=== PATIENT | male | born 1960 | race Caucasian/White ===

== ENCOUNTER 2019-07-25 16:58 | Inpatient (IN) | payer OTHER ==
[~2019-07-25] VITALS: Ht 182.9 cm; Wt 108.7 kg
[2019-07-25 17:31] LABS: BASOPHILS # (AUTO) 0.1 X10'3 (0-0.2); EOSINOPHILS # (AUTO) 0.3 X10'3 (0-0.9); EOSINOPHILS % (AUTO) 3.6 % (0-6); HEMATOCRIT 40.2 % (42.0-52.0); LYMPHOCYTES # (AUTO) 1.9 X10'3 (1.1-4.8); LYMPHOCYTES % (AUTO) 23.2 % (21-51); MEAN CORPUSCULAR HEMOGLOBIN 31.2 PG (27.0-31.0); MEAN CORPUSCULAR HGB CONC 34.8 g/dL (33.0-36.5); MEAN CORPUSCULAR VOLUME 89.7 FL (78-98); MEAN PLATELET VOLUME 9.1 FL (7.4-10.4); MONOCYTES # (AUTO) 0.5 X10'3 (0-0.9); MONOCYTES % (AUTO) 5.8 % (2-12); NEUTROPHILS # (AUTO) 5.5 X10'3 (1.8-7.7); NEUTROPHILS % (AUTO) 66.4 % (42-75); PLATELET COUNT 222 X10'3 (140-440); RED BLOOD COUNT 4.49 X10'6 (4.70-6.10); RED CELL DISTRIBUTION WIDTH 14.2 % (11.5-14.5); WHITE BLOOD COUNT 8.3 X10'3 (4.5-11.0)
[2019-07-25 17:50] LABS: ALANINE AMINOTRANSFERASE 23 U/L (12-78); ALBUMIN 3.6 G/DL (3.4-5.0); ALKALINE PHOSPHATASE 58 IU/L (46-116); ANION GAP 11 (8-16); ASPARTATE AMINO TRANSFERASE 13 U/L (10-37); BILIRUBIN,TOTAL 0.7 MG/DL (0.1-1.0); BLOOD UREA NITROGEN 24 MG/DL (7-18); CALCIUM 8.2 MG/DL (8.5-10.1); CHLORIDE 104 MMOL/L (99-107); GLUCOSE 213 MG/DL (70-104); POTASSIUM 3.6 MMOL/L (3.5-5.1); SODIUM 141 MMOL/L (135-145); TOTAL CARBON DIOXIDE 26.1 MMOL/L (24-32); TOTAL PROTEIN 7.3 G/DL (6.4-8.2); eGFR 62 ML/MIN
[2019-07-25] MEDS ORDERED: nitroGLYCERIN 0.2mg/hour patch TD ONE (17:55)
--- NOTE | 2019-07-25 18:11 | NUR ---
Gave patient a glass of ice water per BRAN Mendoza. Patient denies any further needs at this time.
[2019-07-25] MEDS ORDERED: heparin 25,000 UNIT/250ml bag 250 ML IV SCH (18:19)
[2019-07-25] MEDS ORDERED: heparin 10,000 units/1 ML INJ IV PRN (18:20)
[2019-07-25] MEDS ORDERED: heparin 10,000 units/1 ML INJ IV ONE ×3 (18:20→21:25)
[2019-07-25] MEDS ORDERED: morphine 2 MG/ML inj. syringe IV ONE (18:25)
[2019-07-25] MEDS ORDERED: INSU100I31 (20:03)
[2019-07-25] MEDS ORDERED: OMEP20CA15 PO (20:04)
[2019-07-25] MEDS ORDERED: EZET10TA21 PO (20:06)
[2019-07-25] MEDS ORDERED: BUPR150T8 PO (20:06)
[2019-07-25] MEDS ORDERED: PARO20TA6 PO (20:07)
[2019-07-25] MEDS ORDERED: RANO500T3 PO (20:19)
[2019-07-25] MEDS ORDERED: FENO145T38 PO (20:19)
[2019-07-25] MEDS ORDERED: FURO80TA87 PO (20:27)
[2019-07-25] MEDS ORDERED: LISI-600 PO (20:27)
[2019-07-25] MEDS ORDERED: POTA20PA40 PO (20:27)
[2019-07-25] MEDS ORDERED: ATOR80TA PO (20:27)
[2019-07-25] MEDS ORDERED: ISOS120T13 PO (20:27)
[2019-07-25] MEDS ORDERED: ASPI81TA52 PO (20:27)
[2019-07-25] MEDS ORDERED: CARV25TA3 PO (20:35)
[2019-07-25] MEDS ORDERED: CANA300T PO (20:36)
[2019-07-25] MEDS ORDERED: NITR0.4T51 SL (20:36)
[2019-07-25] MEDS ORDERED: CLOP75TA33 PO (20:36)
[2019-07-25] MEDS ORDERED: furosemide 10 MG/1 ML 10ml inj IV ONE (21:10)
[2019-07-25] MEDS ORDERED: potassium chloride 10mEq ER tablet PO ONE (21:10)
--- NOTE | 2019-07-25 21:10 | NUR ---
DR. RAMIRES AT BEDSIDE FOR ADMISSION. HE STEPPED AWAY TO TALK WITH DR. MCGEE ON THE PHONE NOW. PT WTIH CP SHARP AND STABBING TO LEFT CHEST, NON RADIATING. CURRENT VSS.
--- NOTE | 2019-07-25 21:15 | NUR ---
DR HERNANDEZ CALLED ME AND HAD ME PUT ORDERS IN FOR HIM AND THEN HE ASKED TO SPEAK TO DR HANSON.
[2019-07-25] MEDS ORDERED: potassium CL 10mEq/100ml bag 100 ML IV PRN ×2 (21:25)
[2019-07-25] MEDS ORDERED: morphine 2 MG/ML inj. syringe IV PRN (21:25)
[2019-07-25] MEDS ORDERED: mag hydrox/Alum hydrox/simeth 30ml oral suspension PO PRN (21:25)
[2019-07-25] MEDS ORDERED: glucagon, human recombinant 1mg kit SUBCUT PRN (21:25)
[2019-07-25] MEDS ORDERED: dextrose 50%-water 50ml dispensing syringe IV PRN ×2 (21:25)
[2019-07-25] MEDS ORDERED: MESSAGE TO PHARMACY PO ONE (21:25)
[2019-07-25] MEDS ORDERED: dextrose ORAL solution 15 GM/59 ML bottle PO PRN ×2 (21:25)
[2019-07-25] MEDS ORDERED: magnesium 4gm in 100ml NS 100 ML IV PRN (21:25)
[2019-07-25] MEDS ORDERED: ondansetron/PF 4mg/2ml inj IV PRN (21:25)
[2019-07-25] MEDS ORDERED: acetaminophen 325mg tablet PO PRN (21:25)
[2019-07-25] MEDS ORDERED: docusate sod 100mg capsule PO PRN (21:25)
[2019-07-25] MEDS ORDERED: potassium Cl 20 mEq SR tablet PO PRN ×2 (21:25)
[2019-07-25] MEDS ORDERED: magnesium 2GM in 50ml NS 50 ML IV PRN (21:25)
[2019-07-25] MEDS ORDERED: lisinopril 20mg tablet PO ONE (21:30)
[2019-07-25 22:20] VITALS: BP 126/81
[2019-07-25] MEDS: ranolazine 500mg SR tablet (Q12H) PO SCH (22:49)
[2019-07-25] MEDS: lisinopril 20mg tablet PO SCH (22:51)
[2019-07-25] MEDS: morphine 2 MG/ML inj. syringe IV PRN (22:57)
[2019-07-25] MEDS ORDERED: carVEDilol 12.5mg tablet PO ONE (23:00)
[2019-07-26 01:36] LABS: BASOPHILS # (AUTO) 0.1 X10'3 (0-0.2); BASOPHILS % (AUTO) 1.4 % (0-1); EOSINOPHILS # (AUTO) 0.3 X10'3 (0-0.9); EOSINOPHILS % (AUTO) 3.6 % (0-6); HEMATOCRIT 41.4 % (42.0-52.0); HEMOGLOBIN 14.3 g/dl (14.0-17.9); LYMPHOCYTES # (AUTO) 2.4 X10'3 (1.1-4.8); MEAN CORPUSCULAR HEMOGLOBIN 31.1 PG (27.0-31.0); MEAN CORPUSCULAR HGB CONC 34.6 g/dL (33.0-36.5); MEAN CORPUSCULAR VOLUME 89.9 FL (78-98); MEAN PLATELET VOLUME 9.2 FL (7.4-10.4); MONOCYTES # (AUTO) 0.4 X10'3 (0-0.9); MONOCYTES % (AUTO) 5.3 % (2-12); NEUTROPHILS # (AUTO) 4.9 X10'3 (1.8-7.7); NEUTROPHILS % (AUTO) 59.7 % (42-75); PLATELET COUNT 225 X10'3 (140-440); RED BLOOD COUNT 4.61 X10'6 (4.70-6.10); RED CELL DISTRIBUTION WIDTH 14.3 % (11.5-14.5); WHITE BLOOD COUNT 8.2 X10'3 (4.5-11.0)
[2019-07-26 01:51] LABS: HEMOGLOBIN A1C 9.6 % (4.5-6.2)
[2019-07-26 01:54] LABS: ALANINE AMINOTRANSFERASE 28 U/L (12-78); ALBUMIN 3.8 G/DL (3.4-5.0); ALKALINE PHOSPHATASE 58 IU/L (46-116); ANION GAP 13 (8-16); ASPARTATE AMINO TRANSFERASE 5 U/L (10-37); BILIRUBIN,TOTAL 0.8 MG/DL (0.1-1.0); BLOOD UREA NITROGEN 22 MG/DL (7-18); CALCIUM 8.3 MG/DL (8.5-10.1); CHLORIDE 104 MMOL/L (99-107); CHOL/HDL RATIO 3.5 (0.00-4.99); CHOLESTEROL 132 MG/DL (0-200); GLUCOSE 137 MG/DL (70-104); HDL CHOLESTEROL 38 MG/DL (35-60); LDL CHOLESTEROL 73 MG/DL (50-100); MAGNESIUM 2.1 MG/DL (1.5-2.4); POTASSIUM 3.3 MMOL/L (3.5-5.1); SODIUM 142 MMOL/L (135-145); TOTAL CARBON DIOXIDE 25.4 MMOL/L (24-32); TOTAL PROTEIN 7.6 G/DL (6.4-8.2); TRIGLYCERIDES 181 MG/DL (20-135); eGFR 77 ML/MIN
[2019-07-26] MEDS: heparin 25,000 UNIT/250ml bag 250 ML IV SCH ×3 (02:10→21:03)
[2019-07-26 03:00] VITALS: BP 92/55
[2019-07-26 06:00] VITALS: BP 112/72
--- NOTE | 2019-07-26 06:32 | NUR ---
Problems reprioritized. Patient report given, questions answered & plan of care reviewed with SERGE Rivera.
--- NOTE | 2019-07-26 07:00 | NUR ---
Patient in room MED 311. I have received report from MEGHAN VALENTINE and had the opportunity to ask questions and assume patient care.
[2019-07-26] MEDS: buPROPion 75mg tablet PO SCH (07:55)
[2019-07-26] MEDS: clopidogrel 75mg tablet PO SCH (07:56)
[2019-07-26] MEDS: ezetimibe 10mg tablet PO SCH (07:56)
[2019-07-26] MEDS: pantoprazole 40mg Tablet.DR PO SCH (07:56)
[2019-07-26] MEDS: lisinopril 20mg tablet PO SCH (07:58)
[2019-07-26] MEDS: aspirin 81mg tablet.DR PO SCH (08:00)
[2019-07-26] MEDS: isosorbide mononitrate 30mg tab.SR.24H PO SCH (08:00)
[2019-07-26] MEDS: ranolazine 500mg SR tablet (Q12H) PO SCH ×2 (08:02→21:03)
[2019-07-26] MEDS: carVEDilol 12.5mg tablet PO SCH (08:03)
[2019-07-26] MEDS: potassium Cl 20 mEq SR tablet PO SCH ×3 (08:04→23:39)
[2019-07-26] MEDS: fenofibrate 145mg tablet PO SCH (08:04)
[2019-07-26] MEDS: K and/or MAG REPLACEMENT MC SCH ×2 (08:17→20:00)
[2019-07-26] MEDS: PARoxetine 20mg tablet PO SCH (08:19)
[2019-07-26] MEDS: nitroGLYCERIN 0.4mg SUBLingual tab SL PRN ×4 (09:31→23:27)
[2019-07-26] MEDS: heparin 10,000 units/1 ML INJ IV PRN ×3 (10:12→21:01)
[2019-07-26 11:00] VITALS: BP 104/71
[2019-07-26] MEDS: furosemide 40mg/4ml inj IV SCH ×2 (11:00→19:36)
[2019-07-26 14:00] VITALS: BP 92/59
[2019-07-26 18:00] VITALS: BP 108/65
--- NOTE | 2019-07-26 18:17 | NUR ---
DM Consult: A1C 9.6. Pt/family/SO seen by RD for written/verbal DM ed w/ RD contact information provided. SO reports pt A1C previously in 's and pt does report binging suring holidays and not controlling carb portions. Pt/SO declined verbal DM Ed review. RD encouraged attending CDE course and contacting dietitian's office if further questions. Addendum: 07/26/19 at [address] Amended: Links added.
--- NOTE | 2019-07-26 18:40 | NUR ---
Problems reprioritized. Patient report given, questions answered & plan of care reviewed with SERGE Gonzalez.
[2019-07-26] MEDS: insulin Lispro (HumaLOG) vial - multi-dose SQ SCH (19:34)
[2019-07-26] MEDS: insulin glargine (Lantus) pen - multi-dose SQ SCH (21:00)
[2019-07-26] MEDS: atorvastatin 20mg tablet PO SCH (21:03)
--- NOTE | 2019-07-26 21:23 | NUR ---
Pt reported Chest pain, at the back of the head and neck radiating to left arm and left side of chest. One dose of Nitroglycerin given. Ekg being performed.
--- NOTE | 2019-07-26 21:35 | NUR ---
Brought EKG down to DR. Carvalho in the ER. read strip and stated there was no ST elevation. Came back to the floor and patient's Chest pain came down to a /.
[2019-07-26 22:00] VITALS: BP 115/77
[2019-07-26] MEDS: morphine 2 MG/ML inj. syringe IV PRN (22:37)
--- NOTE | 2019-07-26 22:37 | NUR ---
Patient stated the same Chest pain as before has returned. Pain is once again in the left arm and the back of the head. States he has a headache and there is pain to the left side of his chest. Gave patient 2 mg of morphine and patient stated the pain had not subsided [address] Polk and received an order for Morphine 4mg Q2 for Chest pain.
[2019-07-26] MEDS: morphine 4 MG/ML inj SYRINge IV PRN (22:56)
[2019-07-27] VITALS (10 sets, daily range): BP systolic 87–132; BP diastolic 45–81
[2019-07-27] MEDS: nitroGLYCERIN 0.4mg SUBLingual tab SL PRN ×4 (00:51→22:08)
[2019-07-27] MEDS: morphine 4 MG/ML inj SYRINge IV PRN ×2 (01:03→22:39)
[2019-07-27 03:46] LABS: BASOPHILS % (AUTO) 0.5 % (0-1); EOSINOPHILS # (AUTO) 0.4 X10'3 (0-0.9); EOSINOPHILS % (AUTO) 4.6 % (0-6); HEMOGLOBIN 13.8 g/dl (14.0-17.9); LYMPHOCYTES # (AUTO) 2.8 X10'3 (1.1-4.8); LYMPHOCYTES % (AUTO) 31.5 % (21-51); MEAN CORPUSCULAR HEMOGLOBIN 30.3 PG (27.0-31.0); MEAN CORPUSCULAR HGB CONC 33.7 g/dL (33.0-36.5); MEAN CORPUSCULAR VOLUME 89.8 FL (78-98); MEAN PLATELET VOLUME 9.3 FL (7.4-10.4); MONOCYTES # (AUTO) 0.5 X10'3 (0-0.9); MONOCYTES % (AUTO) 6.1 % (2-12); NEUTROPHILS # (AUTO) 5.1 X10'3 (1.8-7.7); NEUTROPHILS % (AUTO) 57.3 % (42-75); PLATELET COUNT 217 X10'3 (140-440); RED BLOOD COUNT 4.57 X10'6 (4.70-6.10); RED CELL DISTRIBUTION WIDTH 14.4 % (11.5-14.5); WHITE BLOOD COUNT 8.9 X10'3 (4.5-11.0)
[2019-07-27 03:59] LABS: ALANINE AMINOTRANSFERASE 23 U/L (12-78); ALBUMIN 3.6 G/DL (3.4-5.0); ALKALINE PHOSPHATASE 53 IU/L (46-116); ANION GAP 9 (8-16); ASPARTATE AMINO TRANSFERASE 13 U/L (10-37); BILIRUBIN,TOTAL 0.8 MG/DL (0.1-1.0); BLOOD UREA NITROGEN 25 MG/DL (7-18); BUN/CREATININE RATIO 22.3 (5.4-32.0); CALCIUM 8.7 MG/DL (8.5-10.1); CHLORIDE 104 MMOL/L (99-107); CREATININE 1.12 MG/DL (0.60-1.10); GLUCOSE 177 MG/DL (70-104); MAGNESIUM 2.2 MG/DL (1.5-2.4); POTASSIUM 3.7 MMOL/L (3.5-5.1); SODIUM 139 MMOL/L (135-145); TOTAL PROTEIN 7.3 G/DL (6.4-8.2); eGFR 68 ML/MIN
[2019-07-27] MEDS: heparin 25,000 UNIT/250ml bag 250 ML IV SCH ×2 (05:35→09:13)
--- NOTE | 2019-07-27 06:24 | NUR ---
Problems reprioritized. Patient report given, questions answered & plan of care reviewed with orxi العلي.
--- NOTE | 2019-07-27 06:32 | NUR ---
Patient in room MED 311. I have received report from SERGE Gonzalez and had the opportunity to ask questions and assume patient care.
[2019-07-27] MEDS: K and/or MAG REPLACEMENT MC SCH ×2 (08:00→19:21)
[2019-07-27] MEDS: buPROPion 75mg tablet PO SCH (08:04)
[2019-07-27] MEDS: aspirin 81mg tablet.DR PO SCH (08:04)
[2019-07-27] MEDS: ezetimibe 10mg tablet PO SCH (08:04)
[2019-07-27] MEDS: PARoxetine 20mg tablet PO SCH (08:04)
[2019-07-27] MEDS: clopidogrel 75mg tablet PO SCH (08:04)
[2019-07-27] MEDS: isosorbide mononitrate 30mg tab.SR.24H PO SCH (08:04)
[2019-07-27] MEDS: ranolazine 500mg SR tablet (Q12H) PO SCH ×2 (08:05→19:56)
[2019-07-27] MEDS: lisinopril 20mg tablet PO SCH (08:05)
[2019-07-27] MEDS: pantoprazole 40mg Tablet.DR PO SCH (08:05)
[2019-07-27] MEDS: furosemide 40mg/4ml inj IV SCH ×2 (08:05→19:56)
[2019-07-27] MEDS: fenofibrate 145mg tablet PO SCH (08:05)
[2019-07-27] MEDS: insulin Lispro (HumaLOG) vial - multi-dose SQ SCH ×3 (08:15→18:55)
[2019-07-27] MEDS: carVEDilol 12.5mg tablet PO SCH (09:05)
[2019-07-27] MEDS: heparin 10,000 units/1 ML INJ IV PRN (09:11)
--- NOTE | 2019-07-27 18:53 | NUR ---
Problems reprioritized. Patient report given, questions answered & plan of care reviewed with SERGE Gonzalez.
[2019-07-27] MEDS: enoxaparin 100mg/ml syringe SUBCUT SCH (19:56)
[2019-07-27] MEDS: insulin glargine (Lantus) pen - multi-dose SQ SCH (22:07)
[2019-07-27] MEDS: atorvastatin 20mg tablet PO SCH (22:08)
[2019-07-28 02:00] VITALS: BP 114/84
[2019-07-28] MEDS: nitroGLYCERIN 0.4mg SUBLingual tab SL PRN (02:51)
[2019-07-28] MEDS: morphine 4 MG/ML inj SYRINge IV PRN (03:11)
[2019-07-28 06:00] VITALS: BP 120/86
--- NOTE | 2019-07-28 06:00 | NUR ---
Patient in room MED 311. I have received report from SERGE Gonzalez and had the opportunity to ask questions and assume patient care.
[2019-07-28 06:21] LABS: BASOPHILS # (AUTO) 0.1 X10'3 (0-0.2); BASOPHILS % (AUTO) 0.8 % (0-1); EOSINOPHILS # (AUTO) 0.4 X10'3 (0-0.9); EOSINOPHILS % (AUTO) 5.1 % (0-6); HEMATOCRIT 39.9 % (42.0-52.0); HEMOGLOBIN 13.6 g/dl (14.0-17.9); LYMPHOCYTES # (AUTO) 2.2 X10'3 (1.1-4.8); LYMPHOCYTES % (AUTO) 30.1 % (21-51); MEAN CORPUSCULAR HEMOGLOBIN 30.6 PG (27.0-31.0); MEAN CORPUSCULAR HGB CONC 34.1 g/dL (33.0-36.5); MEAN CORPUSCULAR VOLUME 89.7 FL (78-98); MEAN PLATELET VOLUME 9.4 FL (7.4-10.4); MONOCYTES # (AUTO) 0.6 X10'3 (0-0.9); MONOCYTES % (AUTO) 8.1 % (2-12); NEUTROPHILS % (AUTO) 55.9 % (42-75); PLATELET COUNT 183 X10'3 (140-440); RED BLOOD COUNT 4.45 X10'6 (4.70-6.10); RED CELL DISTRIBUTION WIDTH 14.3 % (11.5-14.5); WHITE BLOOD COUNT 7.2 X10'3 (4.5-11.0)
--- NOTE | 2019-07-28 06:23 | NUR ---
Problems reprioritized. Patient report given, questions answered & plan of care reviewed with Naima العلي.
[2019-07-28 06:34] LABS: ALANINE AMINOTRANSFERASE 20 U/L (12-78); ALBUMIN 3.6 G/DL (3.4-5.0); ALKALINE PHOSPHATASE 53 IU/L (46-116); ANION GAP 8 (8-16); ASPARTATE AMINO TRANSFERASE 16 U/L (10-37); BILIRUBIN,TOTAL 0.9 MG/DL (0.1-1.0); BLOOD UREA NITROGEN 24 MG/DL (7-18); BUN/CREATININE RATIO 21.1 (5.4-32.0); CALCIUM 9.2 MG/DL (8.5-10.1); CHLORIDE 103 MMOL/L (99-107); CREATININE 1.14 MG/DL (0.60-1.10); GLUCOSE 146 MG/DL (70-104); MAGNESIUM 2.1 MG/DL (1.5-2.4); POTASSIUM 3.7 MMOL/L (3.5-5.1); SODIUM 138 MMOL/L (135-145); TOTAL CARBON DIOXIDE 26.6 MMOL/L (24-32); TOTAL PROTEIN 7.3 G/DL (6.4-8.2); eGFR 66 ML/MIN
[2019-07-28] MEDS: potassium Cl 20 mEq SR tablet PO SCH (08:00)
[2019-07-28] MEDS ORDERED: carVEDilol 12.5mg tablet PO SCH (08:00)
[2019-07-28] MEDS: K and/or MAG REPLACEMENT MC SCH (08:00)
[2019-07-28] MEDS ORDERED: RANO500T3 PO (08:51)
[2019-07-28] MEDS ORDERED: DOCU100C40 PO (08:51)
[2019-07-28] MEDS ORDERED: CARV-50 PO (08:51)
[2019-07-28] MEDS: insulin Lispro (HumaLOG) vial - multi-dose SQ SCH (09:07)
[2019-07-28] MEDS: furosemide 40mg/4ml inj IV SCH (09:08)
[2019-07-28] MEDS: ezetimibe 10mg tablet PO SCH (09:09)
[2019-07-28] MEDS: buPROPion 75mg tablet PO SCH (09:10)
[2019-07-28] MEDS: aspirin 81mg tablet.DR PO SCH (09:11)
[2019-07-28 09:13] VITALS: BP_SYST 101
[2019-07-28] MEDS: lisinopril 20mg tablet PO SCH (09:13)
[2019-07-28] MEDS: enoxaparin 100mg/ml syringe SUBCUT SCH (09:14)
[2019-07-28] MEDS: pantoprazole 40mg Tablet.DR PO SCH (09:15)
[2019-07-28] MEDS: fenofibrate 145mg tablet PO SCH (09:15)
[2019-07-28] MEDS: clopidogrel 75mg tablet PO SCH (09:16)
[2019-07-28] MEDS: ranolazine 500mg SR tablet (Q12H) PO SCH (09:16)
[2019-07-28] MEDS: isosorbide mononitrate 30mg tab.SR.24H PO SCH (09:19)
[2019-07-28] MEDS: PARoxetine 20mg tablet PO SCH (09:31)
--- NOTE | 2019-07-28 10:47 | NUR ---
Pt left unit with staff in W/C, accompanied by . RN provided teaching on managing angina with medications, all questions answered. Pt left with all personal belongings.
== END 2019-07-28 10:47 | disposition home or self-care (01) | DRG 280 ==
LOC: ER 16:58 → MED 3N 22:32 → CMPBEDREQ 07-27 13:30
PROVIDERS: ADMIT Family Medicine; ATTEND Family Medicine
DX: I21.4 Non-ST elevation (NSTEMI) myocardial infarction (principal); I50.43 Acute on chronic combined systolic (congestive) and diastolic (congestive) heart failure; G93.1 Anoxic brain damage, not elsewhere classified; I69.354 Hemiplegia and hemiparesis following cerebral infarction affecting left non-dominant side; E78.00 Pure hypercholesterolemia, unspecified; I25.110 Atherosclerotic heart disease of native coronary artery with unstable angina pectoris; E78.5 Hyperlipidemia, unspecified; E87.6 Hypokalemia; G47.33 Obstructive sleep apnea (adult) (pediatric); E11.51 Type 2 diabetes mellitus with diabetic peripheral angiopathy without gangrene; F32.9 Major depressive disorder, single episode, unspecified; I11.0 Hypertensive heart disease with heart failure; J44.9 Chronic obstructive pulmonary disease, unspecified; K21.9 Gastro-esophageal reflux disease without esophagitis; Z79.82 Long term (current) use of aspirin; Z79.899 Other long term (current) drug therapy; I25.2 Old myocardial infarction; Z80.0 Family history of malignant neoplasm of digestive organs; Z82.49 Family history of ischemic heart disease and other diseases of the circulatory system; Z87.891 Personal history of nicotine dependence; Z91.19 Patient's noncompliance with other medical treatment and regimen; Z95.1 Presence of aortocoronary bypass graft; Z95.5 Presence of coronary angioplasty implant and graft; Z88.0 Allergy status to penicillin
CPT/HCPCS: 36415; 71045; 80053; 80061; 82948; 83036; 83735; 83880; 84484; 85025; 85730; 87081; 93005; 93306; 96365; 96375; 99285; G0378; J1644; J1650; J1815; J1940; J2270